=== PATIENT | male | born 1945 | race Caucasian/White ===

== ENCOUNTER 2021-02-18 06:59 | Emergency (ER) | payer MEDICARE, BC ==
--- NOTE | 2021-02-18 07:56 | EDM.PDOC ---
ED HPI GENERAL MEDICAL PROBLEM - General Chief Complaint: Gastrointestinal Problem Stated Complaint: CONSTIPATION Time Seen by Provider: 02/18/21 07:40 Source of Information: Reports: Patient, Family () History Limitations: Reports: No Limitations - History of Present Illness INITIAL COMMENTS - FREE TEXT/NARRATIVE: Mr. Lindo is a very pleasant 75-year-old gentleman who now presents the ED with constipation. He states that he underwent a right total knee arthroplasty on 02/05/2021 at [facility]. He states that his pain was initially treated with [place], but he subsequently switched to tramadol, that he has been taking with a stool softener. He states that his last bowel movement was this past 02/15/2021. He drank a bottle of magnesium citrate and started taking Slow-Mag on Thursday. He started taking MiraLAX on 02/16/2021, which caused him to have some liquid stool, but he still feels like he is constipated. No abdominal pain or nausea. No recent fever. Patient states that he does not suffer from chronic constipation. Here in the ED, the patient is found to be hemodynamically stable, afebrile, saturating 97% on room air. He appears to be relatively comfortable, in no acute distress. Prior to Thursday, the patient denies having a recent fever, chills, sore throat, ear pain, nasal or sinus congestion, cough, dyspnea, chest pain, palpitations, nausea, vomiting, constipation, diarrhea, abdominal pain, urinary symptoms, recent weight gain or weight loss, recent bloody bowel movements or black bowel movements, headaches, or rashes. The patient's PCP is Dr. Narendra Tee. His Orthopedic Surgeon is Dr. Davion Wakefield. His Assistant Broker is Dr. James Nicholas. His EP Assistant Broker is Dr. Daren Douglas. - Related Data Allergies Allergy/AdvReac Type Severity Reaction Status Date / Time No Known Allergies Allergy Verified 05/04/20 07:27 Home Meds: Home Meds Acetaminophen [Tylenol Arthritis] 500 mg PO Q6HR PRN 02/18/21 [History] Apixaban [Eliquis] 2.5 mg PO DAILY 02/18/21 [History] Ascorbic Acid [Vitamin C] 1,000 mg PO DAILY 02/18/21 [History] Cholecalciferol (Vitamin D3) [Vitamin D3] 5,000 unit PO DAILY 02/18/21 [History] Cyanocobalamin (Vitamin B-12) [Vitamin B-12] 500 mcg PO DAILY 02/18/21 [History] DULoxetine [Cymbalta] 20 mg PO BEDTIME 02/18/21 [History] Famotidine [Pepcid] 10 mg PO DAILY 02/18/21 [History] Finasteride 5 mg PO DAILY 02/18/21 [History] Hydrocodone/Acetaminophen [HYDROcodone-Acetaminophen 10-325 MG] 1 tab PO Q4H PRN 02/18/21 [History] Latanoprost 1 drop EYELF DAILY 02/18/21 [History] Pramipexole [Mirapex] 0.25 mg PO DAILY PRN 02/18/21 [History] Rosuvastatin [Crestor] 10 mg PO BEDTIME 02/18/21 [History] Tamsulosin [Tamsulosin 24 Hr] 0.4 mg PO DAILY 02/18/21 [History] dilTIAZem HCL [Cardizem] 120 mg PO DAILY 02/18/21 [History] traMADol HCl [Tramadol HCl] 50 mg PO Q4HR PRN 02/18/21 [History] Past Medical History HEENT History: Reports: Impaired Vision Cardiovascular History: Reports: Afib (chronic) Gastrointestinal History: Reports: GERD Genitourinary History: Reports: BPH Musculoskeletal History: Reports: Osteoarthritis Psychiatric History: Reports: Anxiety, Depression Oncologic (Cancer) History: Reports: Basal Cell Carcinoma (forehead) - Past Surgical History HEENT Surgical History: Reports: Oral Surgery (dental extraction) Neurological Surgical History: Reports: Lumbar Spine (laminectomy) Musculoskeletal Surgical History: Reports: Knee Replacement (right, 02/05/2021), Other (See Below) (Right foor bone shaving) Social & Family History - Tobacco Use Tobacco Use Status *Q: Former Tobacco User Years of Tobacco use: 26 Packs/Tins Daily: 2 Month/Year Tobacco Last Used: Quit 1987 Tobacco Use Comment: Started smoking 1961 Second Hand Smoke Exposure: No - Caffeine Use Caffeine Use: Reports: Coffee - Alcohol Use Alcohol Use History: Yes Alcohol Use Frequency: Socially - Recreational Drug Use Recreational Drug Use: No - Living Situation & Occupation Living situation: Reports: , with Spouse Occupation: Retired ED ROS GENERAL - Review of Systems Review Of Systems: Comprehensive ROS is negative, except as noted in HPI. ED EXAM, GI/ABD - Physical Exam Exam: See Below Exam Limited By: No Limitations General Appearance: Alert, WD/WN, No Apparent Distress Eyes: Bilateral: Normal Appearance, EOMI Ears: Normal External Exam, Hearing Grossly Normal Nose: Normal Inspection Throat/Mouth: Normal Inspection, Normal Lips, Normal Voice, No Airway Compromise Head: Atraumatic, Normocephalic Neck: Normal Inspection, Full Range of Motion Respiratory/Chest: No Respiratory Distress, Lungs Clear, Normal Breath Sounds, No Accessory Muscle Use Cardiovascular: Normal Peripheral Pulses, Regular Rate, Rhythm, No Edema, No Gallop, No JVD, No Murmur, No Rub GI/Abdominal Exam: Normal Bowel Sounds (active), Soft, Non-Tender, No Organomegaly, No Distention, No Abnormal Bruit, No Mass Rectal (Males) Exam: Tenderness (patient did not tolerate), Other (Firm jennifer- consistency stool in rectum) Back Exam: Normal Inspection, Full Range of Motion, NT Extremities: Normal Capillary Refill, Other (Right knee with swelling, ecchymosis, but anterior surgical wound appears to be healing normally, with no suggestion of an infection) Neurological: Alert, Oriented, Normal Cognition, No Motor/Sensory Deficits Psychiatric: Normal Affect Skin Exam: Warm, Dry, Intact, Normal Color, No Rash Course - Vital Signs Last Recorded V/S: Last Vital Signs Temp 36.3 C 02/18/21 07:23 Pulse 63 02/18/21 07:23 Resp 18 02/18/21 07:23 BP 138/75 02/18/21 07:23 Pulse Ox 97 02/18/21 07:23 - Orders/Labs/Meds Orders: Active Orders 24 hr Category Date Time Status Enema [RC] ASDIRECTED Care 02/18/21 10:59 Active - Re-Assessments/Exams Free Text/Narrative Re-Assessment/Exam: 02/18/21 07:55 The patient is likely suffering from opioid-induced constipation. I have ordered an abdominal flatplate radiograph to evaluate. 02/18/21 10:17 Abdominal flatplate radiograph is read by Dr. Delcid as: 1. Mild increased stool throughout the colon. 2. Other findings believed to be chronic as described above. 02/18/21 10:52 X-ray results discussed with the patient and his . I then performed a rectal exam, finding a fair amount of stool in the rectum that is thick and tacky, although not rock hard. I attempted to perform a manual disimpaction, but the patient did not tolerate it - it was too painful. We will therefore proceed with a soapsuds enema, to be followed by a mineral oil enema, to see if we can get him started. 02/18/21 12:24 The patient reports that he was able to hold onto the soapsuds enema for about 10 minutes, then passed it. He states that he passed some of the mineral oil en courtney, but he feels there is still probably a fair amount of mineral oil up in the colon. He has not passed any solid stool yet. I encouraged him to continue to try to have a bowel movement. 02/18/21 15:53 The patient has been given a third enema, another mineral oil enema, and had only a very small bowel movement. At this time, I am concerned that he may need to have a surgical disimpaction. Case discussed with Dr. Reddy at 15:48. He felt that in order to be able to justify anesthesia, we would need to know that the patient has a fecal impaction. He therefore recommended a CT of the abdomen pelvis without contrast. If the CT demonstrates fecal impaction, I will call back, but if it doesn't, he recommended the patient go home and take magnesium citrate and repeated enemas. 02/18/21 16:16 The above plan was discussed with the patient and his at length. The patient went back and forth as to whether or not he wanted to proceed with the CT scan, primarily because he is very concerned that a surgical disimpaction could cause a blood-borne infection and infect his new right knee arthroplasty. He had been warned by his Orthopedic Surgeon to not get an infection, because, he was told, it would go straight to his knee. They called their daughter, who is a nurse, who recommended that he proceed with the CT scan, and, ultimately, the patient agreed. 02/18/21 17:13 CT of the abdomen and pelvis without contrast is read by Dr. Delcid as: 1. Increased stool within the rectum. Lesser stool within other portions of the colon. 2. Other findings believed to be chronic and of no acute significance. 02/18/21 17:15 Dr. Reddy contacted at 17:13. He will come by the ED to look at the CT. 02/18/21 17:23 Dr. Reddy reviewed the CT images. He felt that there was a large amount of stool in the rectum, but very little proximally. He recommended that the patient try 2 or 3 days of outpatient management, including repeated enemas. If, after that time, he still has not had a bowel movement, then surgical disimpaction could be considered. 02/18/21 17:28 CT results and my conversation with Dr. Reddy discussed with the patient and his . I will discharge the patient home with the recommendation that he take repeated enemas, either saline, homemade soapsuds, or mineral oil. I do not believe that magnesium citrate will be very helpful at this point, and I advised that he not take MiraLAX or Metamucil, as these are useful to prevent constipation, but that once the patient is constipated, they can make matters worse. If he feels to have a bowel movement within the next few days, he is to either return to the ED for reevaluation or follow-up with his own Surgeon. Departure - Departure Time of Disposition: 17:30 Disposition: Home, Self-Care 01 Condition: Good Clinical Impression: Constipation due to opioid therapy - Discharge Information *PRESCRIPTION DRUG MONITORING PROGRAM REVIEWED*: Not Applicable *COPY OF PRESCRIPTION DRUG MONITORING REPORT IN PATIENT SHE: Not Applicable Instructions: Constipation, Adult Referrals: Narendra Shrestha MD [Primary Care Provider] - Davion Wakefield [Ordering Only Provider] - Daren Douglas [Ordering Only Provider] - James Nicholas DO [Ordering Only Provider] - Forms: ED Department Discharge Additional Instructions: You were seen in the emergency room for constipation related to taking an opioid pain reliever following right knee replacement. Work-up in the ER included an abdominal x-ray and a CT of your abdomen and pelvis. The x-ray showed mildly increased stool throughout your colon, and the CT found a fairly large amount of stool in your rectum, but no significant amount of stool elsewhere. You were given 1 soapsuds enema and 2 mineral oil enemas in the ER, with only a small stool output. Your case was reviewed by the Surgeon Dr. Riaz Reddy, who felt that it woul d be in your best interest to continue to try to have a bowel movement by continue to receive repeated enemas at home. These can be saline enemas, home- made soapsuds enemas, or mineral oil enemas. Stay adequately hydrated, however, magnesium citrate will probably not help at this point. We recommend that you DISCONTINUE the tramadol, or any other opioid pain reliever, as this is the cause of your constipation. We recommend that you NOT take MiraLAX or Metamucil. These are useful to prevent constipation, but can make existing constipation worse. If you have not had a bowel movement within the next 2 or 3 days, either follow- up with your own Surgeon, or return to the ER for reevaluation. Sepsis Event Note (ED) - Evaluation Sepsis Screening Result: No Definite Risk - Focused Exam Vital Signs: Vital Signs Temp Pulse Resp BP Pulse Ox 02/18/21 07:23 36.3 C 63 18 138/75 97 - My Orders Last 24 Hours: My Active Orders 02/18/21 10:59 Enema [RC] ASDIRECTED - Assessment/Plan Last 24 Hours: My Active Orders 02/18/21 10:59 Enema [RC] ASDIRECTED
--- NOTE | 2021-02-18 08:46 | CR ---
Abdomen: Supine view of the abdomen was obtained. Comparison: No prior abdominal imaging is available. Bony structures show slight scattered degenerative change. Minimal increased stool is seen throughout the colon. Calcification is seen within the pelvis which is believed to represent phleboliths. Mild joint space narrowing is seen within both hips. Bichamber pacemaker is noted. Impression: 1. Mild increased stool throughout the colon. 2. Other findings believed to be chronic as described above. Diagnostic code #2
--- NOTE | 2021-02-18 16:52 | CT ---
CT abdomen and pelvis Technique: Multiple axial sections were obtained from above the dome of the diaphragm inferiorly through the pubic symphysis. Reconstructed coronal and sagittal images were obtained. Comparison: Prior abdominal x-ray performed earlier on the same day. Findings: Increased stool is seen within the rectum. Lesser amounts of stool are seen within other portions of the colon. Visualized lung bases show nothing acute. Noncontrast appearance of the liver shows no focal abnormality. Spleen size is normal. Adrenal glands show no nodule. Pancreas shows no abnormality. Gallbladder contains no calcified gallstones. Kidneys show no abnormal calcifications. No ureteral dilatation or ureteral stone is seen. Abdominal aorta shows atherosclerotic calcification. No aneurysm is seen. No retroperitoneal adenopathy or mesenteric abnormalities are seen. No pelvic mass or adenopathy is seen. Bone window settings were reviewed. Mild degenerative change is scattered within the spine. No acute osseous abnormality is appreciated. Impression: 1. Increased stool within the rectum. Lesser stool within other portions of the colon. 2. Other findings believed to be chronic and of no acute significance. Diagnostic code #2
== END 2021-02-18 18:00 | disposition home or self-care (01) ==
LOC: JD.ED 06:59
DX: K59.03 Drug induced constipation (principal); T40.2X5A Adverse effect of other opioids, initial encounter; I48.91 Unspecified atrial fibrillation; K21.9 Gastro-esophageal reflux disease without esophagitis; N40.0 Benign prostatic hyperplasia without lower urinary tract symptoms; Z79.01 Long term (current) use of anticoagulants; Z79.899 Other long term (current) drug therapy; Z87.891 Personal history of nicotine dependence
CPT/HCPCS: 74018; 74018-26; 74176; 74176-26; 99284-25

== ENCOUNTER 2025-03-30 07:39 | Day surgery (SDC) | payer MEDICARE, BC ==
[2025-03-30] MEDS: Lactated Ringers 1,000 ML IV SCH (08:05)
[2025-03-30] MEDS ORDERED: Propofol 200 MG/20 ML SDV ONE (08:34)
[2025-03-30] MEDS ORDERED: Phenylephrine 1% 10 MG/ML SDV ONE (09:28)
[2025-03-30] MEDS ORDERED: Ketamine HCL/NACL, ISO-OSM 50 MG/5 ML Syringe ONE (09:30)
[2025-03-30] MEDS ORDERED: propofoL 500 MG/50 ML 50 ML ONE (09:31)
[2025-03-30] MEDS ORDERED: Lactated Ringers 1,000 ML ONE (09:34)
== END 2025-03-30 10:54 | disposition home or self-care (01) ==
LOC: JD.SDS 07:39
PROVIDERS: ATTEND Surgery
DX: Z12.11 Encounter for screening for malignant neoplasm of colon (principal); D12.0 Benign neoplasm of cecum; D12.3 Benign neoplasm of transverse colon; I48.91 Unspecified atrial fibrillation; K21.9 Gastro-esophageal reflux disease without esophagitis; F41.9 Anxiety disorder, unspecified; F32.A Depression, unspecified; E03.9 Hypothyroidism, unspecified; Z79.890 Hormone replacement therapy; Z79.899 Other long term (current) drug therapy
CPT/HCPCS: 45380; 45385; 88305; J2003; J2371; J2704; J7120; 00811; 99100; J3490